=== PATIENT | male | born 1950 | race Caucasian/White ===

== ENCOUNTER 2017-04-27 10:34 | Emergency (ER) | payer OTHER ==
--- NOTE | 2017-04-27 12:38 | EDPHY ---
H & P Smoking Status: Never smoked Time Seen by Provider: 04/27/17 12:16 HPI/ROS: CHIEF COMPLAINT: Right toe pain HISTORY OF PRESENT ILLNESS: This is a 66-year-old male presenting to the emergency department complaining of right toe pain times several days. Patient states he had something similar to this several years ago not sure whether it was gout or not, unknown if it was colchicine that he was given. Patient states he does walk a lot, occasional alcohol use, patient is a vegetarian and does not eat any processed meat, no aspirin intake. Denies any trauma no fever chills REVIEW OF SYSTEMS: Constitutional: No fever, no chills. Eyes: No discharge. No blurred vision ENT: No sore throat. Cardiovascular: No chest pain, no palpitations. Respiratory: No cough, no shortness of breath. Gastrointestinal: No abdominal pain, no vomiting. Genitourinary: No hematuria. Musculoskeletal: No back pain. Right great toe pain Skin: No rashes. Neurological: No headache. (Kika Rudolph) Physical Exam: General Appearance: Alert and no distress. Eyes: Pupils equal and round no injection. Respiratory: Chest is nontender, lungs are clear to auscultation. Cardiac: regular rate and rhythm Gastrointestinal: Abdomen is soft and nontender, no masses, bowel sounds normal. Musculoskeletal: Neck is supple and nontender. Extremities: Right great toe erythemic, tender to touch, no swelling. no obvious injuries noted. full range of motion with some pain. Antalgic gait positive CMS intact Skin: No rashes or lesions. (Kika Rudolph) Constitutional: Initial Vital Signs Temperature (C) 36.4 C 04/27/17 10:40 Heart Rate 77 04/27/17 10:40 Respiratory Rate 17 04/27/17 10:40 Blood Pressure 164/84 H 04/27/17 10:40 O2 Sat (%) 94 04/27/17 10:40 O2 Delivery Mode Room Air Allergies/Adverse Reactions: No Known Allergies Allergy (Unverified 04/27/17 10:40) Home Medications: Medication Instructions Recorded Colchicine [Colchicine (*)] 1.2 mg PO ONCE #3 tab 04/27/17 predniSONE 40 mg PO DAILY #10 tab 04/27/17 Medical Decision Making ED Course/Re-evaluation: Discussed the plan of care: Medications prednisone and colchicine prescribed for gout. The discussed discharge instructions with patient, discharge home--- > stable (RonniKika) I did not see this patient while she was in the emergency department. However her care was discussed with the nurse practitioner while the patient was in the department. I agree with treatment plan and management (Arnold Schofield) Differential Diagnosis: Other differential diagnosis considered but not limited to the cellulitis, tophi , and traumatic injury (Kika Rudolph) Departure - Departure Disposition: Home, Routine, Self-Care Clinical Impression: Great toe pain, Gout Condition: Good Instructions: Low Purine Diet (ED), Gout (ED) Additional Instructions: 1. Take all medications prescribed 2. Follow up with your primary care provider when you get back home to [place] 3. You can also take ibuprofen 600 mg every 6-8 hours as needed. Keep foot elevated, decreased prolonged pressure on your right foot, decreased wearing tight shoes Referrals: LD [facility] [Other] - As per Instructions Prescriptions: Colchicine [Colchicine (*)] 1.2 mg PO ONCE #3 tab predniSONE 40 mg PO DAILY #10 tab
[2017-04-27 12:53] VITALS: BP 154/67; PULSE 82; RESP 18; TEMP 98.2; O2SAT 95
== END 2017-04-27 13:04 | disposition home or self-care (01) ==
DX: M10.9 Gout, unspecified (principal)